=== PATIENT | male | born 1985 | race Caucasian/White ===

== ENCOUNTER 2016-09-25 13:14 | Emergency (ER) | payer OTHER ==
[~2016-09-25] VITALS: Wt 140.0 kg
[~2016-09-25 13:14] MED LIST: ACET500C5 PO; ALBU18HF INHALATION; IBUP-1542 PO; PROM6.25 PO
[2016-09-25] MEDS ORDERED: ALBUTEROL 0.083% (NEB) 2.5 MG/3 ML AMP NEB STA (13:45)
[2016-09-25] MEDS ORDERED: DEXAMETHASONE 10 MG/ML 1 ML INJ IM STA (13:45)
[2016-09-25] MEDS ORDERED: AZITHROMYCIN 250 MG TAB PO STA (13:54)
--- NOTE | 2016-09-25 13:54 | ERD ---
ER Documentation Chief Complaint Date/Time DATE: 09/25/16 TIME: 13:52 Chief Complaint chest wall pain s/p recent uri. congestion and ran out of albuterol. HPI This is a 31-year-old male with a history of asthma presenting to the emergency room complaining of cough, chest wall tenderness, shortness of breath intermittently for the past 3 weeks. Patient denies any fever, palpitations. Patient states that he used Flonase and Sudafed without any relief. ROS All systems reviewed and are negative except as per history of present illness. Medications Home Meds Active Scripts Acetaminophen* (Tylenol*) 325 Mg Tablet, 2 TAB PO Q6 Y for PAIN AND OR ELEVATED TEMP, #20 TAB Prov:KATALINA FINCHC 09/25/16 Albuterol Sulfate* (Proair HFA*) 8.5 Gm Hfa.aer.ad, 2 PUFF INH Q4H Y for WHEEZING AND SOB, #1 INHALER Prov:KATALINA FINCHC 09/25/16 Azithromycin* (Zithromax*) 250 Mg Tablet, 250 MG PO DAILY for 4 Days, TAB Prov:KATALINA FINCH-C 09/25/16 Ibuprofen* (Motrin*) 600 Mg Tab, 600 MG PO Q6H Y for PAIN AND OR ELEVATED TEMP, #30 TAB Prov:KATALINA FINCH-C 08/21/15 Acetaminophen* (Tylophen*) 500 Mg Capsule, 1 CAP PO Q4 Y for PAIN AND OR ELEVATED TEMP, #20 CAP Prov:KATALINA FINCHC 08/21/15 Promethazine w/Codeine* (Phenergan w/Codeine* Syrup) 5 Ml Syrup, 5 ML PO Q4H Y for COUGH, #120 ML Prov:KATALINA FINCHC 08/21/15 Albuterol Sulfate* (Ventolin HFA*) 18 Gm Hfa.aer.ad, 2 PUFF INHALATION Q4H, #1 INHALER Prov:KATALINA FINCHC 08/21/15 Allergies Allergies: Coded Allergies: No Known Allergy (Unverified , 08/25/14) PMhx/Soc History of Surgery: Yes (RIGHT KNEE) Anesthesia Reaction: No Hx Neurological Disorder: No Hx Respiratory Disorders: No Hx Cardiac Disorders: No Hx Psychiatric Problems: No Hx Miscellaneous Medical Probl: No Hx Alcohol Use: Yes Hx Substance Use: Yes (MARIJUANA) Physical Exam Vitals Vital Signs Date Time Temp Pulse Resp B/P Pulse Ox O2 Delivery O2 Flow Rate FiO2 09/25/16 14:35 90 18 100 Room Air 09/25/16 14:12 87 22 97 21 09/25/16 13:16 98.9 95 20 143/98 97 Physical Exam GENERAL: WD/WN, in no apparent distress, non-toxic appearing HENT: NC/AT, bilateral TM has good cone of light EYES: Conjunctiva normal NECK: Supple PULM: Inspiratory and expiratory wheezing. No rales, crackles, or rhonchi heard. No tripod position, normal labored breathing, no stridor, no evidence of using accessory muscles. CV: Good capillary refill, good S1 and S2, no murmurs appreciated GI: Non-distended, no guarding BACK: No masses. EXT: No clubbing, cyanosis, or edema. NEURO: Moves on all fours SKIN: intact, no cyanosis. PSYCH: Normal mood Results 24 hrs Current Medications Medications (Trade) Dose Ordered Sig/Belkys Route PRN Reason Start Time Stop Time Status Last Admin Dose Admin Dexamethasone (Decadron) 10 mg ONCE STAT IM 09/25/16 13:45 09/25/16 13:48 DC 09/25/16 14:09 Albuterol (Proventil 0.083% (Neb)) 5 mg ONCE STAT NEB 09/25/16 13:45 09/25/16 13:48 DC 09/25/16 14:12 Azithromycin (Zithromax) 500 mg ONCE STAT PO 09/25/16 13:54 09/25/16 13:56 DC 09/25/16 14:10 Procedures/MDM This is a 31-year-old male patient presents to the ER with asthma exacerbation due to most likely a viral upper respiratory infection, low suspicion for status asthmaticus, pneumonia, inhaled foreign body, or other life threatening pulmonary emergencies due to physical examination. RT was consulted in the ED, breathing treatment was administered. Patient was saturating well on room air and wheezing improved. Chest x-ray was done in the ED and radiologist stated is unremarkable. There was no evidence of infiltrates, pneumothorax or pleural effusion. EKG was done in triage. EKG: read and signed off by myself and Dr. Olivier Rate/Rhythm: [Normal Sinus Rhythm 87 bpm] QRS, ST, T-waves: [T-wave inversion in aVR and V1 no changes consistent w/ acute ischemia] Impression: [No evidence of ischemia or arrhythmia] Hemodynamically stable. Patient was saturating well on room air and shortness of breath improved. Prescription for albuterol and Tessalon Perles was given, discussed to have a close follow-up with a primary care physician, discussed to return to the ED if not improving as expected or if condition worsens. Patient understood and agreed with this plan. Departure Diagnosis: Primary Impression: Bronchitis Condition: Stable KATALINA FINCH PA-C Sep 25, 2016 13:53
--- NOTE | 2016-09-25 14:09 | RADRPT ---
PROCEDURE: XR Chest. CLINICAL INDICATION: Shortness of breath TECHNIQUE: Single frontal view of the chest was obtained COMPARISON: 08/25/2014 FINDINGS: The heart and mediastinum are within normal limits. The lungs are clear. There is no pleural effusion or pneumothorax. RPTAT: AA IMPRESSION: No acute disease. .Alvaro Portillo MD, MD Date Time Electronically viewed and signed by .Alvaro Portillo MD, on 09/25/2016 14:09 .S/
[2016-09-25 14:35] VITALS: PULSE 90; RESP 18
[2016-09-25] MEDS ORDERED: ALBU8.5H3 INH (14:38)
[2016-09-25] MEDS ORDERED: ACET325T33 PO (14:38)
[2016-09-25] MEDS ORDERED: AZIT250T94 PO (14:38)
== END 2016-09-25 15:02 | disposition home or self-care (01) ==
LOC: FTE 13:14
DX: J20.9 Acute bronchitis, unspecified (principal); J45.909 Unspecified asthma, uncomplicated; R07.89 Other chest pain
CPT/HCPCS: 71010; 93005; 94664; 96372; 99284; J1100